=== PATIENT | female | born 1970 | race Two or more races ===

== ENCOUNTER 2017-07-16 07:26 | Day surgery (SDC) | payer OTHER ==
[2017-07-16] MEDS ORDERED: CYANOCOBALAMIN (VITAMIN B-12) 1000 MCG/1 ML VIAL IM ONE (13:00)
[2017-07-16] MEDS ORDERED: IRON SUCROSE INJECTION 200 MG in SODIUM CHLORIDE 100 ML IVPB ONE (13:00)
[2017-07-16 19:26] VITALS: PULSE 72; TEMP 98
[2017-07-16 19:31] VITALS: BP 118/75
== END 2017-07-16 17:00 | disposition home or self-care (01) ==
LOC: JONCNONCHE 07:26 → J7W 16:04 → JONCNONCHE 17:00
PROVIDERS: ATTEND Internal Medicine Hematology & Oncology
PROC: 3E033GC Introduction of Other Therapeutic Substance into Peripheral Vein, Percutaneous Approach (ICD-10-PCS; principal; 2017-07-16)
DX: D50.9 Iron deficiency anemia, unspecified (principal)
CPT/HCPCS: 96365; J1756

== ENCOUNTER 2018-01-30 09:44 | Emergency (ER) | payer OTHER ==
[2018-01-30 10:06] VITALS: BP 113/62; PULSE 73; TEMP 98.4; BMI 28.1
[2018-01-30] MEDS ORDERED: ONDANSETRON 4 MG/2 ML VIAL IVPUSH ONE (11:47)
[2018-01-30] MEDS ORDERED: SODIUM CHLORIDE 1,000 ML IV STA (11:47)
[2018-01-30] MEDS ORDERED: ACETAMINOPHEN 1000 MG/100 ML VIAL (NON FORMULARY) IVPB ONE (11:47)
[2018-01-30] MEDS ORDERED: ACETAMINOPHEN INJECTION 100 ML IVPB ONE (12:00)
[2018-01-30] MEDS ORDERED: ONDANSETRON 4 MG/2 ML VIAL ONE (12:01)
--- NOTE | 2018-01-30 12:42 | PDOC ---
History of Present Illness - History of Present Illness Initial Comments: 01/30/18 13:08 47YOF, with a significant past medical history of chronic anemia, chronic pancreatitis, ileus , cardiac arrhythmia, afib no AC, seizure disorder, hypoglycemia, migraines, who presents to the emergency department with, 1 month of weakness and frequent falls. As per patient, her most recent fall was 2 days ago at which time she fell down 13 stairs and has diffuse bruising over her body. Patient endorses pain over the past month to her left flank, chest and upper quadrant and hip with associated generalized weakness, nausea, and decreased PO intake. She states she feels unsteady when she gets up because of weakness in all her extremities. Patient was recently worked up for UTI, ileus and afib in [place] 3 weeks ago, while she was there for dental procedure. She denies recent fevers, headache or dizziness. She denies recent nausea, vomit , diarrhea or constipation. She denies recent dysuria, frequency, urgency or hematuria. She denies recent chest pain or shortness of breath. Allergies: Codeine, hydrocodone bitartrate, morphine, oxycodone HCl Past surgical history: Hysterectomy, AJAY, cholecystectomy, gastric bypass Primary Care Physician: Dr. Adams Hematology: Dr. Gonzalez <Ana Rosa Tang - Last Filed: 01/30/18 17:03> - General History Source: Patient Exam Limitations: No Limitations <Susanne Tsang - Last Filed: 01/30/18 17:10> - General Chief Complaint: Pain Stated Complaint: PAIN, NAUSEA/VOMITING Time Seen by Provider: 01/30/18 11:30 Past History <Ana Rosa Tang - Last Filed: 01/30/18 17:03> - Past Medical History Anemia: Yes (pernicious anemia) Asthma: No Cancer: No Cardiac Disorders: Yes (arrhythmia, a fib) CVA: No COPD: No CHF: No Dementia: No Diabetes: (hypoglycemia) GI Disorders: Yes (chronic pancreatitis, left kidney stent) Disorders: No HTN: No Hypercholesterolemia: No Kidney Stones: Yes Liver Disease: No Seizures: Yes (last seizure in apr 2013) Thyroid Disease: No - Surgical History Abdominal Surgery: Yes (hernia repair, gastric bypass 2001) Appendectomy: No Cardiac Surgery: No Cholecystectomy: Yes Lung Surgery: No Neurologic Surgery: No Orthopedic Surgery: No - Reproductive History Cervical CA: No Endometrial CA: No - Immunization History Immunization Up to Date: No - Suicide/Smoking/Psychosocial Hx Smoking Status: No Smoking History: Never smoked Have you smoked in the past 12 months: No Number of Cigarettes Smoked Daily: 0 Cigars Per Day: 0 Information on smoking cessation initiated: No 'Breaking Loose' booklet given: 03/20/14 Hx Alcohol Use: No Drug/Substance Use Hx: No Substance Use Type: None Hx Substance Use Treatment: No <Susanne Tsang - Last Filed: 01/30/18 17:10> - Past Medical History Allergies/Adverse Reactions: Allergies Allergy/AdvReac Type Severity Reaction Status Date / Time codeine [Codeine] Allergy Severe Difficulty Verified 12/28/15 14:26 Breathing hydrocodone bitartrate Allergy Severe "DIFFICULTY Verified 12/28/15 14:26 [From Vicodin] BREATHING" morphine Allergy Severe Difficulty Verified 12/28/15 14:26 Breathing oxycodone HCl [From Percocet] AdvReac "HALLUCINAT Verified 12/28/15 14:26 IONS" Home Medications: Ambulatory Orders Pantoprazole Sodium [Protonix] 40 mg PO DAILY 09/17/13 Zolpidem Tartrate [Ambien] 10 mg PO HS 09/17/13 Acetaminophen/Caffeine/Butalb [Fioricet -] 1 tablet PO Q8H PRN #30 tablet Topiramate [Topamax -] 100 mg PO DAILY #30 tablet 04/05/15 Tramadol HCl 50 mg PO TID PRN 07/23/15 Tramadol HCl [Tramadol HCl ER] 100 mg PO DAILY #10 tab.er.24h MDD 1 12/28/15 Nitrofurantoin Monohyd/M-Cryst [Macrobid -] 100 mg PO BID #14 capsule 12/30/15 Abd/GI Specific PMHX - Complaint Specific PMHX Pancreatitis: Yes <Susanne Tsang - Last Filed: 01/30/18 17:10> Review of Systems - Review of Systems Able to Perform ROS?: Yes Comments:: 01/30/18 13:08 +Constitutional: general Weakness. no fevers or chills. HEENT: no headache or dizziness. No congestion. No visual/hearing disturbances. CVS: no cp or syncope. Resp: no sob. No cough. +Abdomen: Nausea. +Abdominal pain. Decreased PO intake. no vomiting or diarrhea. Genitourinary: no urinary sx, hematuria. +MUSCULOSKELETAL: Left hip pain. Left flank pain. No joint swelling. No neck pain. SKIN: no redness or skin changes, no discharge, no rash. No wounds. +Hematologic: easy bruising. NEUROLOGIC: No headache, dizziness, LOC or altered mental status. No weakness, numbness or tingling. All other systems reviewed and negative, or as documented in HPI. <Ana Rosa Tang - Last Filed: 01/30/18 17:03> *Physical Exam - Vital Signs Last Vital Signs Temp Pulse Resp BP Pulse Ox 98.4 F 73 17 113/62 100 01/30/18 10:01 01/30/18 10:01 01/30/18 10:01 01/30/18 10:01 01/30/18 10:01 - Physical Exam Comments: 01/30/18 13:08 +General: Uncomfortably appearing. awake and alert Neck: neck supple, FROM Resp: CTAB, normal and even respirations, no respiratory distress CVS: RRR, no murmurs, 2+ peripheral pulses throughout, no peripheral edema Chest: no chest wall tenderness. +Abdomen: Well-healed hysterectomy scar. soft, Left quadrant tenderness. Obese abdomen, no peritoneal signs. +Back: Diffuse midthoracic and left upper back tenderness. normal inspection and ROM Pelvis: left hip TTP, ROM intact. MSK: no edema, BURNS x4, ROM intact. No clubbing or cyanosis. normal bulk and tone. Extremities: no calf tenderness Neuro: alert, oriented appropriately; no focal neurologic deficits +Skin: Diffuse healing bruises in bilateral shins. warm and well perfused, cap refill <2 sec, normal color <Ana Rosa Tang - Last Filed: 01/30/18 17:03> - Vital Signs Last Vital Signs Temp Pulse Resp BP Pulse Ox 98.4 F 73 17 113/62 100 01/30/18 10:01 01/30/18 10:01 01/30/18 10:01 01/30/18 10:01 01/30/18 10:01 <Susanne Tsang - Last Filed: 01/30/18 17:10> Moderate Sedation - Procedure Monitoring Vital Signs: Procedure Monitoring Vital Signs Temperature 98.4 F 01/30/18 10:01 Pulse Rate 73 01/30/18 10:01 Respiratory Rate 17 01/30/18 10:01 Blood Pressure 113/62 01/30/18 10:01 O2 Sat by Pulse Oximetry (%) 100 01/30/18 10:01 <Ana Rosa Tang - Last Filed: 01/30/18 17:03> - Procedure Monitoring Vital Signs: Procedure Monitoring Vital Signs Temperature 98.4 F 01/30/18 10:01 Pulse Rate 73 01/30/18 10:01 Respiratory Rate 17 01/30/18 10:01 Blood Pressure 113/62 01/30/18 10:01 O2 Sat by Pulse Oximetry (%) 100 01/30/18 10:01 <Susanne Tsang - Last Filed: 01/30/18 17:10> ED Treatment Course - LABORATORY CBC & Chemistry Diagram: 01/30/18 12:11 01/30/18 12:11 - ADDITIONAL ORDERS Additional order review: Laboratory Results 01/30/18 01/30/18 12:11 12:11 PT with INR 12.70 INR 1.08 PTT (Actin FS) 28.4 Cancelled 01/30/18 12:11 RBC 4.05 MCV 95.7 MCHC 34.5 RDW 12.3 MPV 10.6 D Neutrophils % 67.9 Lymphocytes % 23.3 Monocytes % 6.7 Eosinophils % 1.5 Basophils % 0.6 - Medications Given in the ED: ED Medications Discontinued Medications Generic Name Dose Route Start Last Admin Trade Name Cathie PRN Reason Stop Dose Admin Acetaminophen 1,000 mg 01/30/18 11:47 01/30/18 12:16 Ofirmev Injection - IVPB 01/30/18 11:48 1,000 mg ONCE ONE Administration Sodium Chloride 1,000 mls @ 1,000 mls/hr 01/30/18 11:47 01/30/18 12:16 Normal Saline - IV 01/30/18 12:46 1,000 mls/hr ASDIR STA Administration Ondansetron HCl 4 mg 01/30/18 11:47 01/30/18 12:16 Zofran Injection IVPUSH 01/30/18 11:48 4 mg ONCE ONE Administration <Ana Rosa Tang - Last Filed: 01/30/18 17:03> - LABORATORY CBC & Chemistry Diagram: 01/30/18 12:11 01/30/18 12:11 - ADDITIONAL ORDERS Additional order review: Laboratory Results 01/30/18 12:11 PTT (Actin FS) Cancelled - RADIOLOGY Radiology Studies Ordered: Category Date Time Status CHEST PA & LAT [RAD] Stat Radiology 01/30/18 11:48 Ordered PELVIS [RAD] Stat Radiology 01/30/18 11:48 Ordered - Medications Given in the ED: ED Medications Discontinued Medications Generic Name Dose Route Start Last Admin Trade Name Cathie PRN Reason Stop Dose Admin Acetaminophen 1,000 mg 01/30/18 11:47 01/30/18 12:16 Ofirmev Injection - IVPB 01/30/18 11:48 1,000 mg ONCE ONE Administration Ondansetron HCl 4 mg 01/30/18 11:47 01/30/18 12:16 Zofran Injection IVPUSH 01/30/18 11:48 4 mg ONCE ONE Administration <TsangSusanne Trinhalexxrodney - Last Filed: 01/30/18 17:10> Medical Decision Making - Medical Decision Making 01/30/18 17:03 Vital signs reviewed, wnl. Prior notes reviewed, including admissions, discharges and consultations. laboratory results and imaging reviewed, basic labs and lytes wnl, coags normal Xray imaging_ unremarkable, normal joints and unremarkable cxr. Contrast in bladder from CT scan EKG normal sinus rhythm, no interval abnormalities, narrow QRS, ST and T wave segments and morphology normal. Nonspecific T wave abnormalities in III only ED course: +episode of bowel movement in the bathroom, no syncope or fall. Given IVF, tylenol and antiemetics. Feels symptomatically improved, normal VS and lance PO, gait stable. CT a/p and chest unremarkable, no injuries. no acute pathology, stable lung nodule, bilateral ovarian cyst, no obstruction or inflammation/injury pattern clinically doubt emergent pathology with reassuring workup and can followup as outpatient Dispo: Pt to be discharged in stable condition. Patient and family made aware of impression and plan, return precautions discussed (including but not limited to worsening pain or symptoms), fevers, or signs of infection, chest pain, respiratory distress, inability to tolerate oral intake, dehydration, syncope, or neurologic changes). Follow up with PMD as recommended, follow up information provided, take medications as instructed for duration of time. continue with supportive care, avoid triggers and precipitants. Instructions to get up more slowly to avoid vagal episodes. All questions answered to patient's satisfaction and expressed understanding and comfort with this. 01/30/18 17:07 01/30/18 17:10 <Susanne Tsang - Last Filed: 01/30/18 17:10> *DC/Admit/Observation/Transfer - Attestations Scribe Attestion: 01/30/18 13:09 Documentation prepared by Ana Rosa Tang, acting as hospital medical assistant for Susanne Tsang MD. <Ana Rosa Tang - Last Filed: 01/30/18 17:03> - Discharge Dispostion Decision to Admit order: No - Attestations Physician Attestion: 01/30/18 17:04 I, Susanne Tsang MD, attest that this document has been prepared under my direction and personally reviewed by me in its entirety. I further attest, that it accurately reflects all work, treatment, procedures and medical decision -making performed by me. <Susanne Tsang - Last Filed: 01/30/18 17:10> Diagnosis at time of Disposition: Abdominal pain, Bruising - Discharge Dispostion Disposition: HOME Condition at time of disposition: Improved - Referrals Referrals: Leonor Adams MD [Primary Care Provider] - - Patient Instructions Printed Discharge Instructions: DI for Abdominal Pain-Adult, DI for Hematoma ( Bruise), DI for Muscle Weakness Additional Instructions: get up slowly, stay well hydrated. avoid triggers follow up with your primary doctor for further evaluation of your symptoms return precautions for worsening symptoms provided your blood work and CT scans were normal, lung nodule was incidentally found and stable. FALL PREVENTION AT HOME WHAT YOU NEED TO KNOW There are many different factors that can increase your risk of falls. Falls can happen any time, but the majority of them occur in the home. Fall prevention includes ways to make your home and other areas safer. It also includes ways you can move more carefully to prevent a fall. Health conditions that cause changes in your blood pressure, vision, or muscle strength and coordination may increase your risk for falls. Medicines, including anesthesia, may increase your risk for falls if they make you dizzy, weak, or sleepy. FALL PREVENTION TIPS Stand or sit up slowly. This may help you keep your balance and prevent falls. Do not walk and talk at the same time. Concentrate on the task of walking and continue the conversation after you've reached a safe place. Wear shoes that fit well and have soles that chief i dispatcher. Wear shoes both inside and outside. Use slippers with good chief i dispatcher. Avoid shoes with high heels. Use assistive devices as directed. Your healthcare provider may suggest that you use a cane or walker to help you keep you balance. Be sure you have adequate lighting throughout your house. Keep paths clear. Remove books, shoes and other objects from walkways and stairs. Keep cords for telephones and lamps out of the way so you dont need to walk over them. Remove small rugs or secure them with double-sided tape. This will prevent you from tripping. Use a nightlight when getting out of bed at night. Stay active to maintain overall strength and endurance. Know your limitations. If there is a task you can not complete with ease, do not risk a fall by trying to complete it. Call 911 or have someone else call if: You have fallen and are unconscious You have fallen and cannot move part of your body Contact your healthcare provider if: You have fallen and have pain or a headache You have questions or concerns about your condition or care. - Post Discharge Activity Forms/Work/School Notes: Back to Work
[2018-01-30 12:44] LABS: BASO % 0.6 % (0-2.0); EOS % 1.5 % (0-4.5); HEMATOCRIT 38.8 % (32.4-45.2); HEMOGLOBIN 13.4 GM/dL (10.7-15.3); LYMPH % 23.3 % (8-40); MCH 33.1 pg (25.7-33.7); MCHC 34.5 g/dl (32.0-36.0); MEAN CELL VOLUME 95.7 fl (80-96); MEAN PLT VOLUME 10.6 fl (7.5-11.1); MONO % 6.7 % (3.8-10.2); NEUT % 67.9 % (42.8-82.8); PLATELET COUNT 267 K/MM3 (134-434); RBC 4.05 M/mm3 (3.60-5.2); RDW 12.3 % (11.6-15.6); WHITE BLOOD COUNT 8.2 K/mm3 (4.0-10.0)
[2018-01-30 12:56] LABS: INR 1.08 (0.83-1.09); PROTHROMBIN TIME (PATIENT) 12.7 SEC (9.7-13.0)
[2018-01-30 12:59] LABS: ACTIVATED PTT 28.4 SECONDS (25.2-36.5)
[2018-01-30 13:19] LABS: ALBUMIN 3.8 g/dl (3.4-5.0); ALK PHOS 68 U/L (45-117); ANION GAP 6 MMOL/L (8-16); BILIRUBIN,TOTAL 0.5 mg/dL (0.2-1); BLOOD UREA NITROGEN 8 mg/dL (7-18); CALCIUM 8.8 mg/dL (8.5-10.1); CHLORIDE 106 mmol/L (98-107); CO2 27 mmol/L (21-32); CREATININE 0.7 mg/dL (0.55-1.3); GLUCOSE,RANDOM 84 mg/dL (74-106); LIPASE 66 U/L (73-393); POTASSIUM 4.3 mmol/L (3.5-5.1); SGOT/AST 29 U/L (15-37); SGPT/ALT 16 U/L (13-61); SODIUM 140 mmol/L (136-145); TOT PROT 7.5 g/dl (6.4-8.2)
--- NOTE | 2018-01-31 15:27 | EKG ---
Test Reason : Blood Pressure : / mmHG Vent. Rate : 060 BPM Atrial Rate : 060 BPM P-R Int : 138 ms QRS Dur : 088 ms QT Int : 408 ms P-R-T Axes : 070 007 033 degrees QTc Int : 408 ms NORMAL SINUS RHYTHM NORMAL ECG WHEN COMPARED WITH ECG OF 31-MAR-2015 10:11, NONSPECIFIC T WAVE ABNORMALITY, IMPROVED IN INFERIOR LEADS Confirmed by AMAURY SAUER MD ([id number]) on 01/31/2018 3:27:33 PM Referred By: Confirmed By:AMAURY SAUER MD
== END 2018-01-30 17:19 | disposition home or self-care (01) ==
LOC: JER 09:44
PROC: 3E033NZ Introduction of Analgesics, Hypnotics, Sedatives into Peripheral Vein, Percutaneous Approach (ICD-10-PCS; principal; 2018-01-30)
PROC: 3E033GC Introduction of Other Therapeutic Substance into Peripheral Vein, Percutaneous Approach (ICD-10-PCS; 2018-01-30)
PROC: 3E0337Z Introduction of Electrolytic and Water Balance Substance into Peripheral Vein, Percutaneous Approach (ICD-10-PCS; 2018-01-30)
DX: R10.9 Unspecified abdominal pain (principal); T14.8XXA Other injury of unspecified body region, initial encounter; W10.9XXA Fall (on) (from) unspecified stairs and steps, initial encounter; Z91.81 History of falling; Y93.89 Activity, other specified; Y92.89 Other specified places as the place of occurrence of the external cause
CPT/HCPCS: 36415; 71046-TC-FY; 71260-TC; 72170-TC-FY; 74177-TC; 80053; 83690; 85025; 85610; 85730; 93005; 93010; 99283-25; J0131; J7030